=== PATIENT | female | born 1970 | race Caucasian/White ===

== ENCOUNTER 2022-11-12 15:20 | Emergency (ER) | payer OTHER ==
[~2022-11-12] VITALS: Ht 167.6 cm; Wt 72.6 kg
[2022-11-12 15:34] VITALS: BP 169/108; PULSE 102; RESP 18; TEMP 97; O2SAT 98
[2022-11-12] MEDS ORDERED: KETOROLAC 60 MG/2 ML VIAL IM ONE (16:00)
[2022-11-12] MEDS ORDERED: NACL 0.9% 1,000 ML IV ONE (17:10)
[2022-11-12] MEDS ORDERED: BACITRACIN OINT 500 UNITS/GM PKT TP ONE ×2 (17:15→18:47)
[2022-11-12] MEDS ORDERED: MORPHINE SULFATE 4 MG/ML SYR IVP ONE (18:45)
[2022-11-12] MEDS ORDERED: KETOROLAC 30 MG/ML VIAL IVP ONE (19:05)
[2022-11-12 19:07] LABS: BASOPHILS % (AUTO) 0.2 % (0.0-2.0); EOSINOPHILS % (AUTO) 0.1 % (0.0-4.0); HEMATOCRIT 40.2 % (36-48); HEMOGLOBIN 14.3 g/dL (12.0-16.0); LYMPHOCYTES # (AUTO) 1.5 K/uL (2.5-16.5); LYMPHOCYTES % (AUTO) 15.1 % (20.5-51.1); MEAN CORPUSCULAR HEMOGLOBIN 34 pg (27-31); MEAN CORPUSCULAR HGB CONC 36 g/dL (33-37); MEAN CORPUSCULAR VOLUME 94.4 fL (80-94); MONOCYTES # (AUTO) 0.5 K/uL (0.8-1.0); MONOCYTES % (AUTO) 5.2 % (1.7-9.3); NEUTROPHILS # (AUTO) 7.8 K/uL (1.8-7.7); NEUTROPHILS % (AUTO) 79.4 % (42.2-75.2); PLATELET COUNT (AUTO) 181 K/uL (140-450); RED BLOOD CELL COUNT(AUTO) 4.26 MIL/uL (4.20-5.40); RED CELL DISTRIBUTION WIDTH 13.4 % (11.6-13.7); WHITE BLOOD COUNT (AUTO) 9.8 K/uL (4.8-10.8)
[2022-11-12 19:35] LABS: ALANINE AMINOTRANSFERASE 32 U/L (12-78); ALBUMIN 4.5 g/dL (3.4-5.0); ALKALINE PHOSPHATASE 67 U/L (50-136); ANION GAP 14.2 (8-16); ASPARTATE AMINOTRANSFERASE 22 U/L (15-37); CALCIUM 10.3 mg/dL (8.5-10.1); CARBON DIOXIDE 25.3 mmol/L (21-32); CHLORIDE 105 mmol/L (98-107); GFR ARICAN-AMERICAN 75 mL/min (>90); GFR NON ARICAN-AMERICAN 62 mL/min (>90); GLUCOSE 116 mg/dL (74-106); LIPASE 183 U/L (73-393); POTASSIUM 3.5 mmol/L (3.5-5.1); SODIUM SERUM 141 mmol/L (136-145); TOTAL BILIRUBIN 0.6 mg/dL (0.0-1.0); TOTAL PROTEIN, SERUM 8.1 g/dL (6.4-8.2); UREA NITROGEN, BLOOD 16 mg/dL (7-18)
[2022-11-12] MEDS ORDERED: ACET-8905 PO (19:41)
[2022-11-12 19:59] VITALS: BP 132/85; PULSE 82; RESP 16; TEMP 97; O2SAT 98
== END 2022-11-12 19:59 | disposition home or self-care (01) ==
LOC: MED 15:20
DX: S13.8XXA Sprain of joints and ligaments of other parts of neck, initial encounter (principal); S50.01XA Contusion of right elbow, initial encounter; S20.211A Contusion of right front wall of thorax, initial encounter; S60.512A Abrasion of left hand, initial encounter; V49.88XA Car occupant (driver) (passenger) injured in other specified transport accidents, initial encounter; Y93.89 Activity, other specified; Y92.89 Other specified places as the place of occurrence of the external cause; Y99.8 Other external cause status
CPT/HCPCS: 36415; 71046; 72040; 73080; 73130; 80053; 83690; 84484; 85025; 90471; 90715; 96361; 96374; 96375; 99284; J1885; J2270; J7030